=== PATIENT | male | born 1960 ===

== ENCOUNTER 2016-07-25 05:49 | Observation (INO) | payer BC ==
[~2016-07-25] VITALS: Ht 175.3 cm; Wt 89.0 kg
[2016-07-25] VITALS (7 sets, daily range): BP systolic 136–184; BP diastolic 80–104; PULSE 71–118; RESP 18–20; TEMP 98.2–99; O2SAT 95–99
[2016-07-25] MEDS ORDERED: ASPI325T PO (06:03)
[2016-07-25] MEDS ORDERED: DILTIAZEM HCL 25 MG/5 ML VIAL ONE (06:08)
[2016-07-25] MEDS ORDERED: SODIUM CHLORIDE 0.9% FLUSH 5 ML FLUSH IVF PRN ×2 (06:15→06:45)
[2016-07-25] MEDS ORDERED: SODIUM CHLORID 0.9% 500 ML INJ 500 ML IV ONE (06:15)
[2016-07-25] MEDS ORDERED: DILTIAZEM HCL 25 MG/5 ML VIAL IV ONE (06:15)
--- NOTE | 2016-07-25 06:16 | PD ---
HPI Chief Complaint: Cardiac Complaint Time Seen by Provider: 06:00 Travel History International Travel<30 days: No Contact w/Intl Traveler<30days: No Traveled to known affect area: No History of Present Illness HPI The patient is a 56 year old male who presents to the [facility] emergency department with a history of a sensation of palpitations and warmth in the center of his chest that began at approximately 10 PM last night. The patient reports that he is concerned that he has a recurrence of atrial fibrillation. He reports that he's had this in the past and had a pacemaker placed in 2006. The patient reports that he was last seen by a outpatient pharmacy manager or primary care doctor approximately 4 years ago. He reports that he stopped his medications at that time. He reports that he does take an adult aspirin daily, however when he started having symptoms he took 3 adult aspirins approximately 4 hours prior to arrival. The patient reports that he does drink alcohol and a daily basis. He reports that he normally drinks 5 beers per day, however yesterday he did drink more alcohol than usual. The patient has swelling of his ankles, however he reports that this is been chronic for the last 2 years. He denies having any other medical history. He denies having any chest pain or chest pressure. He denies having any shortness of breath. The patient denies any recent fevers, cough, congestion, neck pain, abdominal pain, vomiting, diarrhea , urinary symptoms, or neurologic symptoms. [facility] Past Medical History Narrative Medical The patient's past medical history is significant for atrial fibrillation, daily alcohol intake Atrial Fibrillation: Yes Tetanus Vaccination: Unknown Influenza Vaccination: No Past Surgical History Narrative Surgical The patient's past surgical history significant for a pacemaker placement, inguinal hernia repair. Cardiac Surgery: Yes (PACEMAKER) Pacemaker: Yes Other Surgery: Yes Social History Alcohol Use: Yes (DAILY, 5 beers per day on average) Tobacco Use: No Substance Use: No Allergies-Medications (Allergen,Severity, Reaction): Coded Allergies: No Known Allergies (Unverified , 07/25/16) Reported Meds & Prescriptions Reported Meds & Active Scripts Active Reported Aspirin 325 Mg Tab 325 Mg PO DAILY Review of Systems Except as stated in HPI: all other systems reviewed are Neg General / Constitutional: No: Fever Eyes: No: Visual changes HENT: No: Headaches Cardiovascular: Positive: Palpitations, Tachycardia, No: Chest Pain or Discomfort, Dyspnea on exertion Respiratory: No: Shortness of Breath Gastrointestinal: No: Abdominal Pain Genitourinary: No: Urgency, Frequency, Dysuria Musculoskeletal: No: Pain Skin: No Rash Neurologic: No: Weakness Psychiatric: No: Depression Endocrine: No: Polydipsia Hematologic/Lymphatic: No: Easy Bruising Physical Exam Narrative General: The patient is a well-developed well-nourished male, anxious appearing on examination.. Head and Neck exam: Head is normocephalic atraumatic. Eyes: Pupils are equal round and reactive to light. Nose: Midline septum with pink mucous membranes Mouth: Dentition unremarkable. Moist mucus membranes. Posterior oropharynx is not erythematous. No tonsillar hypertrophy. Uvula midline. Airway patent. Neck: No palpable lymphadenopathy. No nuchal rigidity. No thyromegaly. Cardiovascular: Irregularly irregular with a rate in the 120s without murmurs, gallops, or rubs. He has an intermittent pulse deficit to the extremity noted on simultaneous auscultation and palpation of his radial artery. Lungs: Clear to auscultation bilaterally. No wheezes, rhonchi, or rales. Abdomen: Soft, without tenderness to palpation in all 4 quadrants of the abdomen. No guarding, rebound, or rigidity. Normal bowel sounds are audible. Extremities: No clubbing or cyanosis. The patient has trace to 1+ pitting edema bilateral lower extremities. 2+ pulses in all 4 extremities. No calf tenderness on palpation Back: No costovertebral angle tenderness to palpation. Neurologic Exam: Grossly nonfocal. Skin Exam: No rash noted. Intact skin that is warm and dry. Data Data Last Documented VS Vital Signs Date Time Temp Pulse Resp B/P Pulse Ox O2 Delivery O2 Flow Rate FiO2 07/25/16 06:50 140/80 07/25/16 06:10 18 96 Nasal Cannula 2 07/25/16 06:06 118 07/25/16 05:52 98.2 Orders Diltiazem Inj (Cardizem Inj) (07/25/16 06:08) Electrocardiogram (07/25/16 06:12) B-Type Natriuretic Peptide (07/25/16 06:12) Ckmb (Isoenzyme) Profile (07/25/16 06:12) Complete Blood Count With Diff (07/25/16 06:12) Comprehensive Metabolic Panel (07/25/16 06:12) Magnesium (Mg) (07/25/16 06:12) Prothrombin Time / Inr (Pt) (07/25/16 06:12) Act Partial Throm Time (Ptt) (07/25/16 06:12) Troponin I (07/25/16 06:12) Lipase (07/25/16 06:12) Chest, Single Ap (07/25/16 06:12) Ecg Monitoring (07/25/16 06:12) Bilateral Bp Monitoring (07/25/16 06:12) Iv Access Insert/Monitor (07/25/16 06:12) Oximetry (07/25/16 06:12) Oxygen Administration (07/25/16 06:12) Sodium Chloride 0.9% Flush (Ns Flush) (07/25/16 06:15) Sodium Chlorid 0.9% 500 Ml Inj (Ns 500 M (07/25/16 06:15) Diltiazem Inj (Cardizem Inj) (07/25/16 06:15) Diltiazem Inj (Cardizem Inj) (07/25/16 06:45) Sodium Chloride 0.9% Flush (Ns Flush) (07/25/16 06:45) CKMB (07/25/16 06:15) CKMB% (07/25/16 06:15) Nitroglycerin 2% Oint (Nitroglycerin 2% (07/25/16 07:00) Admit To Inpatient (07/25/16 ) Vital Signs (Adult) Q4H (07/25/16 07:22) Activity Oob Ad Stacey (07/25/16 07:22) High Speed Printer Operator / Telemetry .CONTINUOUS (07/25/16 07:22) Diet Heart Healthy (07/25/16 Breakfast) Sodium Chloride 0.9% Flush (Ns Flush) (07/25/16 07:30) Sodium Chloride 0.9% Flush (Ns Flush) (07/25/16 09:00) Acetaminophen (Tylenol) (07/25/16 07:30) Ondansetron Inj (Zofran Inj) (07/25/16 07:30) Bisacodyl Supp (Dulcolax Supp) (07/25/16 07:30) Magnesium Hydroxide Liq (Milk Of Magnesi (07/25/16 07:30) Basic Metabolic Panel (Bmp) (07/26/16 06:00) Complete Blood Count With Diff (07/26/16 06:00) Scd Bilateral/Knee High KAILA.BID (07/25/16 07:22) Naloxone Inj (Narcan Inj) (07/25/16 07:30) Inpatient Certification (07/25/16 ) Labs Laboratory Tests Test 07/25/16 06:15 White Blood Count 7.4 TH/MM3 Red Blood Count 4.85 MIL/MM3 Hemoglobin 15.2 GM/DL Hematocrit 44.1 % Mean Corpuscular Volume 90.9 FL Mean Corpuscular Hemoglobin 31.3 PG Mean Corpuscular Hemoglobin 34.4 % Concent Red Cell Distribution Width 13.1 % Platelet Count 186 TH/MM3 Mean Platelet Volume 8.6 FL Neutrophils (%) (Auto) 66.1 % Lymphocytes (%) (Auto) 21.4 % Monocytes (%) (Auto) 8.5 % Eosinophils (%) (Auto) 3.3 % Basophils (%) (Auto) 0.7 % Neutrophils # (Auto) 4.9 TH/MM3 Lymphocytes # (Auto) 1.6 TH/MM3 Monocytes # (Auto) 0.6 TH/MM3 Eosinophils # (Auto) 0.2 TH/MM3 Basophils # (Auto) 0.1 TH/MM3 CBC Comment DIFF FINAL Differential Comment Prothrombin Time 10.8 SEC Prothromb Time International 1.0 RATIO Ratio Activated Partial 26.1 SEC Thromboplast Time Sodium Level 136 MEQ/L Potassium Level 4.1 MEQ/L Chloride Level 100 MEQ/L Carbon Dioxide Level 24.9 MEQ/L Anion Gap 11 MEQ/L Blood Urea Nitrogen 17 MG/DL Creatinine 0.91 MG/DL Estimat Glomerular Filtration 86 ML/MIN Rate Random Glucose 118 MG/DL Calcium Level 8.9 MG/DL Magnesium Level 1.6 MG/DL Total Bilirubin 0.5 MG/DL Aspartate Amino Transf 24 U/L (AST/SGOT) Alanine Aminotransferase 30 U/L (ALT/SGPT) Alkaline Phosphatase 79 U/L Total Creatine Kinase 148 U/L Creatine Kinase MB 3.3 NG/ML Troponin I LESS THAN 0.02 NG/ML B-Type Natriuretic Peptide 58 PG/ML Total Protein 8.0 GM/DL Albumin 4.4 GM/DL Lipase 81 U/L [facility] Medical Decision Making Medical Screen Exam Complete: Yes Emergency Medical Condition: Yes Medical Record Reviewed: Yes Differential Diagnosis Atrial fibrillation with RVR, versus electrolyte abnormality, versus acute coronary syndrome, versus anxiety disorder, versus aortic dissection Narrative Course During the course of the patients emergency department visit, the patients history, examination, and differential diagnosis were reviewed with the patient. The patient had IV access obtained and blood work sent for analysis. The patient was placed on a surveillance monitor with oximetry and blood pressure monitoring. An EKG was done on arrival. The patient's EKG shows atrial fibrillation with RVR with a heart rate of 108, no acute ST segment elevation or depression. The patient was provided Cardizem 15 mg IV 1, followed by Cardizem drip which will be titrated to control his heart rate less than 100. The patient reports that he took aspirin prior to arrival, 3 adult aspirins, therefore additional aspirin will not be administered. The patient had nitroglycerin paste 1 inch applied to the chest wall. The patient's blood pressure on the right compared to the left was grossly discordant. Blood pressures manually will be checked to reassess. A CT scan of the chest to evaluate the aorta for possible dissection has been ordered. Manual blood pressures were checked by the patient's nurse and there was no asymmetry. The patient's automatic blood pressure cuff was removed and replaced with a new cuff. The patient's CT scan was canceled as the patient's chest x-ray shows no mediastinal widening and no other acute abnormality as read by me in the reading radiologist. The patient will be admitted to the hospital for continued evaluation and treatment of A. fib with RVR on a Cardizem drip. The patients results were discussed with the patient, including the plan of care. I explained that further testing and/ or monitoring is indicated based on the patients history, examination, and/ or laboratory findings. Therefore, I recommended admission for additional evaluation. The patient expressed understanding and was agreeable with this plan. The patient was admitted to the hospital in stable condition and sent to a bed under the care of the [facility]. Physician Communication Physician Communication The patient's case was discussed with Dr. Tovar who did agree to admit the patient for further evaluation and treatment at this time. Diagnosis Primary Impression: Atrial fibrillation with RVR Admitting Information Admitting Physician Requests: Admit Megan Esposito MD Jul 25, 2016 06:15
[2016-07-25 06:23] LABS: AUTOMATED NEUTROPHIL # 4.9 TH/MM3 (1.8-7.7); BASOPHIL # 0.1 TH/MM3 (0-0.2); BASOPHIL % 0.7 % (0.0-2.0); EOSINOPHIL # 0.2 TH/MM3 (0-0.4); EOSINOPHIL % 3.3 % (0.0-4.0); HEMATOCRIT 44.1 % (39.0-51.0); HEMO FLAGS DIFF FINAL; LYMPH % 21.4 % (9.0-44.0); LYMPHOCYTE # 1.6 TH/MM3 (1.0-4.8); MEAN CELL VOLUME 90.9 FL (80.0-100.0); MEAN CORPUSCULAR HEMOGLOBIN 31.3 PG (27.0-34.0); MEAN CORPUSCULAR HGB CONC 34.4 % (32.0-36.0); MONO % 8.5 % (0.0-8.0); NEUT % 66.1 % (16.0-70.0); PLATELET COUNT 186 TH/MM3 (150-450); RED BLOOD COUNT 4.85 MIL/MM3 (4.50-5.90); RED CELL DISTRIBUTION WIDTH 13.1 % (11.6-17.2); WHITE BLOOD COUNT 7.4 TH/MM3 (4.0-11.0)
[2016-07-25 06:38] LABS: APTT (PATIENT) 26.1 SEC (24.3-30.1); PROTHROMBIN TIME - PATIENT 10.8 SEC (9.8-11.6)
[2016-07-25 06:42] LABS: ALKALINE PHOSPHATASE 79 U/L (45-117); CREATINE KINASE 148 U/L (39-308); TOTAL BILIRUBIN ADULT 0.5 MG/DL (0.2-1.0)
--- NOTE | 2016-07-25 06:43 | RADRPT ---
EXAM DATE/TIME: 07/25/2016 06:38 [place] COMPARISON: No previous studies available for comparison. INDICATIONS : Chest palpations this morning. MEDICAL HISTORY : Atrial fibrillation. SURGICAL HISTORY : Pacemaker. ENCOUNTER: Initial ACUITY: 1 day PAIN SCORE: 3/10 LOCATION: Bilateral chest FINDINGS: Cardiomegaly. Single-lead pacer from a left subclavian transvenous approach noted. Lungs are clear. O sseous structures are intact. CONCLUSION: No acute disease. Adam Hogan MD on July 25, 2016 at 6:41 Board Certified Radiologist. This report was verified electronically.
[2016-07-25] MEDS ORDERED: DILTIAZEM INJ 125 MG in SODIUM CHLORIDE 0.9% INJ 100 ML IV SCH (06:45)
[2016-07-25 06:54] LABS: ALT (GPT) 30 U/L (12-78); ANION GAP 11 MEQ/L (5-15); AST (GOT) 24 U/L (15-37); BICARBONATE 24.9 MEQ/L (21.0-32.0); BLOOD UREA NITROGEN 17 MG/DL (7-18); CHLORIDE 100 MEQ/L (98-107); GLOMERULAR FILTRATION RATE 86 ML/MIN (>89); MAGNESIUM 1.6 MG/DL (1.5-2.5); POTASSIUM 4.1 MEQ/L (3.5-5.1); SODIUM (NA) 136 MEQ/L (136-145)
[2016-07-25 06:55] LABS: CKMB 3.3 NG/ML (0.5-3.6)
[2016-07-25] MEDS ORDERED: NITROGLYCERIN 2% OINT 1 GM PACKET TOPICAL ONE (07:00)
[2016-07-25] MEDS ORDERED: ONDANSETRON HCL 4 MG/2 ML VIAL IVP PRN (07:30)
[2016-07-25] MEDS ORDERED: SODIUM CHLORIDE 0.9% FLUSH 5 ML FLUSH FLUSH PRN (07:30)
[2016-07-25] MEDS ORDERED: BISACODYL 10 MG SUPP PR PRN (07:30)
[2016-07-25] MEDS ORDERED: NALOXONE HCL 0.4 MG/ML AMP IV PRN (07:30)
[2016-07-25] MEDS ORDERED: ACETAMINOPHEN 325 MG TAB PO PRN (07:30)
[2016-07-25] MEDS ORDERED: MAGNESIUM HYDROXIDE SUSP 30 ML CUP PO PRN (07:30)
[2016-07-25] MEDS ORDERED: SODIUM CHLORIDE 0.9% FLUSH 5 ML FLUSH FLUSH SCH (09:00)
[2016-07-25] MEDS ORDERED: METOPROLOL TARTRATE 25 MG TAB PO SCH (10:00)
[2016-07-25] MEDS ORDERED: chlordiazePOXIDE 25 MG CAP PO PRN (10:00)
--- NOTE | 2016-07-25 10:32 | HHI.HP ---
[facility]ician No Primary Care Physician Admission Diagnosis Afib with RVR Diagnoses: Chief Complaint: Warm feeling in the center of his chest, drinking. Travel History International Travel<30 Days: No Contact w/Intl Traveler <30 Da: No Traveled to Known Affected Are: No History of Present Illness Mr. Gill is a pleasant 56-year-old male with a history of atrial fibrillation, alcohol abuse who presents to the emergency department due to a warm sensation in the center of his chest that began at approximately 10 PM on . He also reports drinking heavy in the last few days. At the time of this interview patient denies any chest pain, shortness of breath, fever or chills. He denies any palpitation. He was diagnosed with atrial fibrillation in 2006 and underwent a pacemaker placement in 2006 as well. He does not follow up with a prototype assembler electronics anymore due to financial concerns. He briefly was on warfarin before but a prototype assembler electronics a while back. Patient denies any changes in bowel or bladder habits. He received diltiazem 15 mg IV push in the ED. Review of Systems ROS Limitations: Other (negative except as noted in the history of present illness) Past Family Social History Past Medical History Atrial fibrillation, bradycardia - possibly sick sinus syndrome Past Surgical History Pacemaker placement, hernia repair Reported Medications Aspirin 325 Mg Tab 325 Mg PO DAILY Allergies: Coded Allergies: No Known Allergies (Unverified , 07/25/16) Family History Both parents had cancer. No history of Alzheimer's or Parkinson's. Social History Drinks 5-8 beers a day. Denies smoking or using illicit drugs. Physical Exam Vital Signs Vital Signs Date Time Temp Pulse Resp B/P Pulse Ox O2 Delivery O2 Flow Rate FiO2 07/25/16 06:50 140/80 07/25/16 06:15 184/104 07/25/16 06:10 18 96 Nasal Cannula 2 07/25/16 06:10 96 Nasal Cannula 2 07/25/16 06:06 118 18 136/92 96 Nasal Cannula 2 07/25/16 06:03 118 18 96 Room Air 07/25/16 05:52 98.2 103 20 178/94 98 Physical Exam GENERAL: This is a well-nourished, well-developed patient, in no apparent distress. SKIN: No rashes, ecchymoses or lesions. Warm and dry. HEAD: Atraumatic. Normocephalic. No temporal or scalp tenderness. EYES: Pupils equal round and reactive. No injection or drainage. ENT: Nose without bleeding, purulent drainage or septal hematoma. Airway patent. NECK: Trachea midline. No lymphadenopathy. Supple, nontender, no meningeal signs. CARDIOVASCULAR: Regular rate, irregularly irregular without murmurs, gallops, or rubs. No JVD. RESPIRATORY: Clear to auscultation. Breath sounds equal bilaterally. No wheezes , rales, or rhonchi. GASTROINTESTINAL: Abdomen soft, non-tender, nondistended. No guarding. MUSCULOSKELETAL: Extremities without clubbing, cyanosis, or edema. NEUROLOGICAL: Awake and alert. Cranial nerves II through XII intact. No focal neurological deficits. Normal speech. Laboratory Laboratory Tests Test 07/25/16 06:15 White Blood Count 7.4 Red Blood Count 4.85 Hemoglobin 15.2 Hematocrit 44.1 Mean Corpuscular Volume 90.9 Mean Corpuscular Hemoglobin 31.3 Mean Corpuscular Hemoglobin 34.4 Concent Red Cell Distribution Width 13.1 Platelet Count 186 Mean Platelet Volume 8.6 Neutrophils (%) (Auto) 66.1 Lymphocytes (%) (Auto) 21.4 Monocytes (%) (Auto) 8.5 Eosinophils (%) (Auto) 3.3 Basophils (%) (Auto) 0.7 Neutrophils # (Auto) 4.9 Lymphocytes # (Auto) 1.6 Monocytes # (Auto) 0.6 Eosinophils # (Auto) 0.2 Basophils # (Auto) 0.1 CBC Comment DIFF FINAL Differential Comment Prothrombin Time 10.8 Prothromb Time International 1.0 Ratio Activated Partial 26.1 Thromboplast Time Sodium Level 136 Potassium Level 4.1 Chloride Level 100 Carbon Dioxide Level 24.9 Anion Gap 11 Blood Urea Nitrogen 17 Creatinine 0.91 Estimat Glomerular Filtration 86 Rate Random Glucose 118 Calcium Level 8.9 Magnesium Level 1.6 Total Bilirubin 0.5 Aspartate Amino Transf 24 (AST/SGOT) Alanine Aminotransferase 30 (ALT/SGPT) Alkaline Phosphatase 79 Total Creatine Kinase 148 Creatine Kinase MB 3.3 Troponin I LESS THAN 0.02 B-Type Natriuretic Peptide 58 Total Protein 8.0 Albumin 4.4 Lipase 81 Result Diagram: 07/25/1661407/25/16614 Imaging Last Impressions Chest X-Ray 07/25/16611 Signed Impressions: Service Date/Time: Monday, July 25, 2016 06:38 - CONCLUSION: No acute disease. Adam Hogan MD Assessment and Plan Problem List: (1) Atrial fibrillation with RVR ICD Code: I48.91 Status: Acute (2) Alcohol abuse ICD Code: F10.10 Status: Acute Assessment and Plan Mr. Gill is a pleasant 56-year-old male with a history of atrial fibrillation, possibly sick sinus syndrome status post pacemaker placement in 2006 who presents to the emergency department on 07/25/2016 due to a warm sensation in his chest. In the ED he was found to have atrial fibrillation with RVR. Patient was given 50 mg of diltiazem IV push. His heart rate has well controlled since then. Patient denies any chest pain, shortness of breath , fever or chills. - Atrial fibrillation with RVR - Received diltiazem 50 mg in the ED. - Currently rate controlled. We'll start patient on metoprolol 25 mg every 8 hours. - [id number] score 0. No need for anticoagulant and at this point. Continue aspirin 325 mg daily. - Encouraged patient to follow-up with a prototype assembler electronics. Patient may follow- up with date and the heart group. - Alcohol abuse - discussed with patient at length regarding his alcohol abuse. Patient is motivated to quit drinking alcohol. - Start Librium 25mg TID to help patient quit drinking alcohol. Full code. SCDs, Ambulation. Patient was admitted as In Patient due to anticipated need for Cardizem drip. However, patient's heart rate is controlled and we expect that he may not need to be on cardizem drip. We will convert his admission status to Observation. If his heart rate is controlled on PO Metoprolol, we will re-assess this PM and possibly discharge him home with outpatient Cardiology follow up. Physician Certification 2 Midnight Certification Type: Admission for Inpatient Services Order for Inpatient Services The services are ordered in accordance with Medicare regulations or non- Medicare payer requirements, as applicable. In the case of services not specified as inpatient-only, they are appropriately provided as inpatient services in accordance with the 2-midnight benchmark. Estimated LOS (days): 1 days is the estimated time the patient will need to remain in the hospital, assuming treatment plan goals are met and no additional complications. Post-Hospital Plan: Home Notes: Patient's status will be changed to Obs. Anticipate discharge within 24-48 hours. Francisco Tovar DO Jul 25, 2016 10:00 am
[2016-07-25] MEDS ORDERED: ASPIRIN EC 325 MG TABEC PO SCH (11:00)
--- NOTE | 2016-07-25 11:37 | EKG ---
Date Performed: 07/25/2016 Time Performed: 06:05:13 PTAGE: 56 years EKG: ATRIAL FIBRILLATION WITH RAPID VENTRICULAR RESPONSE POSSIBLE ANTERIOR MYOCARDIAL INFARCTION ABNORMAL ECG NO PREVIOUS TRACING DOCTOR: Maxwell Palomino Interpretating Date/Time 07/25/2016 11:36:06
[2016-07-25] MEDS ORDERED: AMLO5TAB2 PO (13:49)
[2016-07-25] MEDS ORDERED: METO25TA3 PO (13:49)
== END 2016-07-25 14:56 | disposition home or self-care (01) ==
LOC: NEPE 05:49 → INTOOBSV 07:28 → NEDA 07:28 → HCIS 09:05 → UNDODISIN 14:56
PROVIDERS: ADMIT Hospitalist; ATTEND Hospitalist
DX: I48.91 Unspecified atrial fibrillation (principal); R94.31 Abnormal electrocardiogram [ECG] [EKG]; F10.10 Alcohol abuse, uncomplicated; Z79.82 Long term (current) use of aspirin; Z95.0 Presence of cardiac pacemaker
CPT/HCPCS: 71010; 80053; 82550; 82552; 83690; 83735; 83880; 84484; 85025; 85610; 85730; 93005; 96374; 99285; G0378; J7040

== ENCOUNTER 2017-08-19 10:28 | Emergency (ER) | payer BC ==
[~2017-08-19] VITALS: Ht 193 cm; Wt 142.5 kg
[~2017-08-19 10:28] MED LIST: AMLO5TAB2 PO; ASPI-183 PO; METO25TA3 PO
[2017-08-19 10:30] VITALS: BP 153/73; PULSE 71; RESP 16; TEMP 99; O2SAT 94
--- NOTE | 2017-08-19 11:04 | PD ---
HPI Chief Complaint: Skin Problem Time Seen by Provider: 10:49 Travel History International Travel<30 days: No Contact w/Intl Traveler<30days: No Traveled to known affect area: No History of Present Illness HPI 57-year-old male presents emergency department with bleeding from the left lower inner pino. He states he was in a shower and "pick the scab" and started bleeding profusely. He states he had trouble stopping the bleeding. Patient has a history of A. fib currently on aspirin only. Patient denies any other symptoms other than some mild dizziness. He has no pain or fever or chills. He has no known drug allergies. PFSH Past Medical History Atrial Fibrillation: Yes Cardiovascular Problems: Yes (PACEMAKER) Past Surgical History Cardiac Surgery: Yes (PACEMAKER) Pacemaker: Yes Other Surgery: Yes Social History Alcohol Use: Yes (DAILY, 5 beers per day on average) Tobacco Use: No Substance Use: No Allergies-Medications (Allergen,Severity, Reaction): Coded Allergies: No Known Allergies (Unverified Adverse Reaction, Unknown, 08/19/17) Reported Meds & Prescriptions Reported Meds & Active Scripts Active Reported Aspirin 325 Mg Tab 325 Mg PO DAILY Review of Systems Except as stated in HPI: all other systems reviewed are Neg General / Constitutional: No: Fever Eyes: No: Visual changes HENT: No: Headaches Cardiovascular: No: Chest Pain or Discomfort Respiratory: No: Shortness of Breath Gastrointestinal: No: Abdominal Pain Genitourinary: No: Dysuria Musculoskeletal: No: Pain Skin: No Rash Neurologic: No: Weakness Psychiatric: No: Depression Endocrine: No: Polydipsia Hematologic/Lymphatic: No: Easy Bruising Physical Exam Narrative GENERAL: Moderately obese male in no acute distress SKIN: Warm and dry. Normal color. Normal turgor. Patient has a small 3 mm oval scab aguiar in the left lower inner pino with no active bleeding on exam. Patient is noted to have multiple varicosities to the lower extremities. HEAD: Atraumatic. Normocephalic. EYES: Pupils equal and round. No scleral icterus. No injection or drainage. ENT: No nasal bleeding or discharge. Mucous membranes pink and moist. Pharynx is clear. NECK: Trachea midline. Supple and nontender. CARDIOVASCULAR: Regular rate and rhythm. RESPIRATORY: No accessory muscle use. Clear to auscultation. Breath sounds equal bilaterally. GASTROINTESTINAL: Abdomen soft, non-tender, nondistended. Hepatic and splenic margins not palpable. MUSCULOSKELETAL: Extremities without clubbing, cyanosis, or edema. No obvious deformities. NEUROLOGICAL: Awake and alert. No obvious cranial nerve deficits. Motor grossly within normal limits. Five out of 5 muscle strength in the arms and legs. Normal speech. PSYCHIATRIC: Appropriate mood and affect; insight and judgment normal. Data Data Last Documented VS Vital Signs Date Time Temp Pulse Resp B/P (MAP) Pulse Ox O2 Delivery O2 Flow Rate FiO2 08/19/17 10:30 99.0 71 16 153/73 (99) 94 Orders Orders Complete Blood Count With Diff (08/19/17 10:59) Prothrombin Time / Inr (Pt) (08/19/17 10:59) Act Partial Throm Time (Ptt) (08/19/17 10:59) Labs Laboratory Tests Test 08/19/17 11:55 08/19/17 12:40 Prothrombin Time 10.6 SEC Prothromb Time International Ratio 1.0 RATIO Activated Partial Thromboplast Time 20.8 SEC White Blood Count 8.5 TH/MM3 Red Blood Count 4.61 MIL/MM3 Hemoglobin 14.3 GM/DL Hematocrit 41.5 % Mean Corpuscular Volume 90.0 FL Mean Corpuscular Hemoglobin 31.0 PG Mean Corpuscular Hemoglobin Concent 34.5 % Red Cell Distribution Width 14.8 % Platelet Count 178 TH/MM3 Mean Platelet Volume 8.7 FL Neutrophils (%) (Auto) 70.1 % Lymphocytes (%) (Auto) 19.1 % Monocytes (%) (Auto) 8.4 % Eosinophils (%) (Auto) 1.9 % Basophils (%) (Auto) 0.5 % Neutrophils # (Auto) 6.0 TH/MM3 Lymphocytes # (Auto) 1.6 TH/MM3 Monocytes # (Auto) 0.7 TH/MM3 Eosinophils # (Auto) 0.2 TH/MM3 Basophils # (Auto) 0.0 TH/MM3 CBC Comment DIFF FINAL Differential Comment MDM Medical Decision Making Medical Screen Exam Complete: Yes Emergency Medical Condition: Yes Differential Diagnosis Varicose veins. Venous insufficiency. Bleeding varicosities. Hypocoagulability. Narrative Course Patient is medically stable at time of exam. Bleeding has already stopped on exam. Dressing is placed over the wound which should remain in place for 24 hours. CBC, and coagulation studies are ordered. Coagulation studies are normal. CBC is unremarkable. Patient should maintain dressing as discussed. Patient should avoid picking lesions on the lower extremities. Recommend keeping the area protected for the next week with Band-Aid or similar. Patient to return if bleeding recurs. Patient to follow with his primary care physician. Diagnosis Primary Impression: Varicose veins of both lower extremities Additional Impression: Spontaneous hemorrhage Referrals: Primary Care Physician Patient Instructions: General Instructions Additional Instructions: Coagulation studies are normal. CBC is unremarkable. Patient should maintain dressing as discussed. Patient should avoid picking lesions on the lower extremities. Recommend keeping the area protected for the next week with Band-Aid or similar. Patient to return if bleeding recurs. Patient to follow with his primary care physician. Med/Other Pt SpecificInfo: No Meds Exist/No RX given, Wound Care Disposition: 01 DISCHARGE HOME Condition: Stable Bruce Marino Aug 19, 2017 11:04
[2017-08-19 12:31] LABS: PROTHROMBIN TIME - PATIENT 10.6 SEC (9.8-11.6)
[2017-08-19 13:11] LABS: BASOPHIL % 0.5 % (0.0-2.0); EOSINOPHIL # 0.2 TH/MM3 (0-0.4); EOSINOPHIL % 1.9 % (0.0-4.0); HEMATOCRIT 41.5 % (39.0-51.0); HEMOGLOBIN 14.3 GM/DL (13.0-17.0); LYMPH % 19.1 % (9.0-44.0); LYMPHOCYTE # 1.6 TH/MM3 (1.0-4.8); MEAN CORPUSCULAR HGB CONC 34.5 % (32.0-36.0); MEAN PLATELET VOLUME 8.7 FL (7.0-11.0); MONO % 8.4 % (0.0-8.0); MONOCYTE # 0.7 TH/MM3 (0-0.9); NEUT % 70.1 % (16.0-70.0); PLATELET COUNT 178 TH/MM3 (150-450); RED BLOOD COUNT 4.61 MIL/MM3 (4.50-5.90); RED CELL DISTRIBUTION WIDTH 14.8 % (11.6-17.2); WHITE BLOOD COUNT 8.5 TH/MM3 (4.0-11.0)
== END 2017-08-19 13:48 | disposition home or self-care (01) ==
LOC: NEPD 10:28
DX: I83.893 Varicose veins of bilateral lower extremities with other complications (principal); I48.91 Unspecified atrial fibrillation; Z79.82 Long term (current) use of aspirin
CPT/HCPCS: 85025; 85610; 85730; 99283